=== PATIENT | female | born 1985 | race African-American/Black ===

== ENCOUNTER 2017-01-29 11:41 | Emergency (ER) | payer MEDICAID ==
[~2017-01-29] VITALS: Ht 188 cm; Wt 117.9 kg
[2017-01-29 11:53] VITALS: BP_SYST 127
[2017-01-29] MEDS ORDERED: NACL 0.9% 1,000 ML IV ONE (12:07)
[2017-01-29] MEDS ORDERED: ONDANSETRON HCL 4 MG/2 ML VIAL IVP ONE (12:15)
[2017-01-29] MEDS ORDERED: MORPHINE 4 MG/ML INJ. SYRINGE IVP ONE (12:15)
[2017-01-29 12:20] LABS: BILIRUBIN,URINE NEGATIVE (NEGATIVE); CLARITY/URINE CLEAR (CLEAR); COLOR,URINE YELLOW (YELLOW); GLUCOSE,URINE NEGATIVE (NEGATIVE); KETONES,URINE NEGATIVE (NEGATIVE); LEUKOCYTE ESTERASE ,URINE NEGATIVE (NEGATIVE); NITRITE, URINE NEGATIVE (NEGATIVE); PROTEIN URINE TRACE (NEGATIVE); UROBILINOGEN,URINE 0.2 (0.2-1.0)
[2017-01-29 12:25] LABS: BLOOD, URINE TRACE (NEGATIVE)
[2017-01-29 12:34] LABS: EOSINOPHILS # (AUTO) 0.1 K/uL (0.0-0.4); HEMOGLOBIN 12.1 g/dL (12.0-16.0)
[2017-01-29 12:38] LABS: BACTERIA,URINE FEW /HPF (None Seen); MUCUS,URINE 1+ /LPF (None Seen); RBC,URINE 0-3 /HPF (0-3); WBC,URINE 0-3 /HPF (0-3)
[2017-01-29 12:39] LABS: CALCIUM 8.8 mg/dL (8.4-11.0); CREATININE 1.37 mg/dL (0.55-1.30); POTASSIUM 4.4 mmol/L (3.5-5.1)
[2017-01-29 12:42] LABS: BASOPHILS # (AUTO) 0.1 K/uL (0.0-0.2); BASOPHILS % (AUTO) 0.7 % (0.0-2.0); EOSINOPHILS % (AUTO) 1.5 % (0.0-4.0); HEMATOCRIT 38.3 % (36-48); INR 0.9 (0.8-1.2); LYMPHOCYTES # (AUTO) 1.8 K/uL (1.0-5.5); LYMPHOCYTES % (AUTO) 22.1 % (20.5-51.5); MEAN CORPUSCULAR HEMOGLOBIN 24 pg (27-31); MEAN CORPUSCULAR HGB CONC 32 % (32-36); MEAN CORPUSCULAR VOLUME 77 fL (79.0-98.0); MONOCYTES # (AUTO) 0.4 K/uL (0.0-1.0); MONOCYTES % (AUTO) 5.3 % (1.7-9.3); NEUTROPHILS # (AUTO) 5.9 K/uL (1.8-7.7); NEUTROPHILS % (AUTO) 70.4 % (40.0-70.0); PLATELET COUNT (AUTO) 348 K/uL (130-430); PROTHROMBIN TIME 10.2 SECS (9.5-12.5); RED CELL DISTRIBUTION WIDTH 14.4 % (9.0-15.0); WHITE BLOOD COUNT (AUTO) 8.3 K/uL (4.8-10.8)
[2017-01-29 12:43] LABS: ALBUMIN 3.5 g/dL (3.4-4.8); TOTAL BILIRUBIN 0.4 mg/dL (0.0-1.0); TOTAL PROTEIN, SERUM 7.7 g/dL (6.4-8.3)
[2017-01-29] MEDS ORDERED: HYDROmorphone 1 MG INJ. 1 MG/ML AMPUL IVP ONE (13:45)
--- NOTE | 2017-01-29 14:30 | NUR ---
Patient to ER bed 8 to gown for evaluation. Side rails up. Report given to Shamir.
--- NOTE | 2017-01-29 14:32 | NUR ---
Pt c/o left flank pain with nausea, vomiting for 2 days. Pt is alert and oriented x4, lung sounds clear bilaterally, skin is warm, intact. Pt denied SOB, respirations, even, and unlabored. Pt is placed on secured entrance monitor and continuous pulse ox, waiting for MD lockhart. Will continue to monitor pt.
--- NOTE | 2017-01-29 14:35 | NUR ---
DR GARCIA AT BEDSIDE DISCUSSING PLAN OF CARE
[2017-01-29 14:59] VITALS: BP_SYST 112
--- NOTE | 2017-01-29 15:00 | NUR ---
Patient given written and verbal discharge instructions and verbalizes understanding. ER MD discussed with patient the results and treatment provided. Patient in stable condition. ID arm band removed. IV catheter removed intact and dressing applied, no active bleeding. Rx of Zofran and Tylenol with Codeine given. Patient educated on pain management and to follow up with PMD. Pain Scale 0/10. Opportunity for questions provided and answered.
== END 2017-01-29 15:00 | disposition home or self-care (01) ==
LOC: SED 11:41
DX: N23 Unspecified renal colic (principal); R19.09 Other intra-abdominal and pelvic swelling, mass and lump; Z90.89 Acquired absence of other organs
CPT/HCPCS: 36415; 74176; 80053; 81000; 81025; 82150; 83690; 85025; 85610; 85730; 96361; 96374; 96375; 99285; J1170; J2270; J2405; J7030

== ENCOUNTER 2017-05-12 15:55 | Emergency (ER) | payer MEDICAID, OTHER ==
[~2017-05-12] VITALS: Ht 190.5 cm; Wt 122.5 kg
[2017-05-12 15:55] VITALS: BP_SYST 127
[2017-05-12 16:19] LABS: BILIRUBIN,URINE NEGATIVE (NEGATIVE); BLOOD, URINE NEGATIVE (NEGATIVE); CLARITY/URINE CLEAR (CLEAR); COLOR,URINE YELLOW (YELLOW); GLUCOSE,URINE NEGATIVE (NEGATIVE); KETONES,URINE NEGATIVE (NEGATIVE); LEUKOCYTE ESTERASE ,URINE TRACE (NEGATIVE); NITRITE, URINE NEGATIVE (NEGATIVE); PH,URINE 6.5 (5.0-8.0); PROTEIN URINE NEGATIVE (NEGATIVE); UROBILINOGEN,URINE 0.2 (0.2-1.0)
[2017-05-12 16:51] LABS: BACTERIA,URINE MODERATE /HPF (None Seen); MUCUS,URINE None Seen /LPF (None Seen); RBC,URINE 0-3 /HPF (0-3)
[2017-05-12 17:14] VITALS: BP_SYST 125
== END 2017-05-12 17:14 | disposition home or self-care (01) ==
LOC: SED 15:55
DX: N39.0 Urinary tract infection, site not specified (principal); I10 Essential (primary) hypertension; Z90.89 Acquired absence of other organs; E66.9 Obesity, unspecified; Z68.33 Body mass index [BMI] 33.0-33.9, adult
CPT/HCPCS: 81000-TC; 81025; 87086; 96365; 96375; 99283; 99284; 99285

== ENCOUNTER 2017-05-31 17:00 | Emergency (ER) | payer OTHER ==
[~2017-05-31] VITALS: Ht 188 cm; Wt 122.5 kg
[2017-05-31 17:10] VITALS: BP_SYST 136
[2017-05-31 19:50] VITALS: BP_SYST 131
== END 2017-05-31 19:25 | disposition home or self-care (01) ==
LOC: SED 17:00
DX: K52.9 Noninfective gastroenteritis and colitis, unspecified (principal); I10 Essential (primary) hypertension
CPT/HCPCS: 81025; 99283